=== PATIENT | female | born 1960 | race Caucasian/White ===

== ENCOUNTER → 2020-05-31 | Outpatient (CLI) | payer OTHER ==
[~2020-05-31] MED LIST: ALPR.5 PO; AMIT25; BCOIRO PO; BLOOD PRESSURE MED?; CLON1 PO; CONEST.625 PO; DULO30 PO; FLAX PO; FLAX SEED OIL1000 MG; GINSENG PO; Glucosamine Ch1 EAC4; HYDACE5 PO; HYDCHL25 PO; Hair, Skin & N1 EACH; Hydrochlorothia25 MG; IBUP800 PO; LISI10 PO; LISI20 PO; LISI5 PO; METF500; METF500 PO; Mobic15 MG; Multiple Vitam1 EAC1; NAPR550 PO; OMEP20ER PO; PROBIOTIC1 EAC1 PO; PROG100 PO; PSYL5.85P PO; VICODIN HP 10-1 EACH PO; ZOLP10 PO; [UNRECOGNIZED DRUG - OTHER] PO
== END ==
LOC: LAB EV 16:55 → LAB SHORT 16:55
DX: Z51.81 Encounter for therapeutic drug level monitoring (principal); Z79.899 Other long term (current) drug therapy
CPT/HCPCS: G0480

== ENCOUNTER → 2020-07-06 | Outpatient (CLI) | payer OTHER ==
[~2020-07-06] MED LIST changes: +AMITRIPTYLINE100 MG PO; +ASPI81CH PO; -Hair, Skin & N1 EACH; +Hair, Skin & N1 EACH PO; +METO50 PO; +MUPIROCIN22 G2; +Norco 7.5-3251 EACH PO; +Percocet 5-3251 EACH PO
== END | disposition home or self-care (01) ==
LOC: LAB SHORT 11:00
PROVIDERS: Family Medicine
DX: Z51.81 Encounter for therapeutic drug level monitoring (principal); Z79.899 Other long term (current) drug therapy
CPT/HCPCS: G0480

== ENCOUNTER → 2020-09-03 | Outpatient (CLI) | payer OTHER ==
[2020-09-09 06:11] LABS: 6-ACETYLMORPHINE Not Detected (.)
== END ==
LOC: LAB 12:04 → PLD 12:04 → LAB SHORT 12:04
PROVIDERS: Family Medicine
DX: Z51.81 Encounter for therapeutic drug level monitoring (principal); Z79.899 Other long term (current) drug therapy
CPT/HCPCS: G0480

== ENCOUNTER 2020-09-25 08:18 | Day surgery (SDC) | payer OTHER ==
[~2020-09-25] VITALS: Ht 165.1 cm; Wt 97.6 kg
[~2020-09-25 08:18] MED LIST changes: -ASPI81CH PO; -MUPIROCIN22 G2; -Percocet 5-3251 EACH PO
[2020-09-25] MEDS ORDERED: MUPIROCIN22 G2 (08:46)
--- NOTE | 2020-09-25 09:23 | NUR ---
History, Chart, Medications and Allergies reviewed before start of procedure. Patient confirms NPO status and agrees with scheduled surgery. Knee high fede hose with calf PAS applied to RLE. Nozin x3 ampules to nares per Dr. Stewart' order.
--- NOTE | 2020-09-25 14:28 | NUR ---
PT MED WITH ONE PAIN PILL TO START, REPORTS PAIN STILL 6/10. PT GIVEN ANOTHER PAIN PILL UPON REQ. SEE EMAR.
--- NOTE | 2020-09-25 18:15 | NUR ---
SHIFT SUMMARY PT EATING AND DRINKING. PT NOT VOIDED YET BUT REPORTS WILL TRY AFTER PAIN MEDICATIONS START WORKING. PT WORKED WITH THERAPY EARLIER TODAY. PT BEEN ASSISTED WITH ADL'S PRN. PT DRINKING WELL. PT HAD FAMILY IN TO SEE PT TODAY. PT BEEN MED PRN FOR PAIN WITH HAVING PAIN PILLS AND REQUIRED IV PAIN MEDICATION X1 TODAY. 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 WILL REPORT TO ONCOMING NURSE INCLUDING PT NOT VOIDED YET.
[2020-09-26 05:52] LABS: BASOPHILS ABSOLUTE AUTO 0.03 K/mm3 (0.00-0.23); BASOPHILS PERCENT AUTO 0 % (0-2); EOSINOPHILS PERCENT AUTO 0 % (0-6); Hematocrit 34.1 % (33.0-51.0); Hemoglobin 11.2 g/dL (11.5-16.0); IMMATURE GRAN ABSOLUTE AUTO 0.13 K/mm3 (0.00-0.10); IMMATURE GRAN PERCENT AUTO 1 % (0-1); LYMPHOCYTES ABSOLUTE AUTO 1.18 K/mm3 (0.84-5.20); LYMPHOCYTES PERCENT AUTO 7 % (21-46); MONOCYTES ABSOLUTE AUTO 1.06 K/mm3 (0.16-1.47); MONOCYTES PERCENT AUTO 6 % (4-13); Mean Corpuscular HGB 31.1 pg (26.0-34.0); Mean Corpuscular HGB Conc 32.8 g/dL (31.5-36.5); Mean Corpuscular Volume 95 fL (80-100); Mean Platelet Volume 11.1 fL (9.1-12.4); NEUTROPHILS ABSOLUTE AUTO 14.97 K/mm3 (1.96-9.15); NEUTROPHILS PERCENT AUTO 86 % (41-73); Platelet Count 310 K/mm3 (150-400); RDW Coefficient Variation 13.6 % (11.7-14.2); RDW Standard Deviation 47.1 fL (35.1-46.3); White Blood Cell Count 17.37 K/mm3 (4.00-11.30)
[2020-09-26 06:26] LABS: Anion Gap 9 mmol/L (6-16); Blood Urea Nitrogen 15 mg/dL (8-24); Bun/Creatinine Ratio 18.9 (12.0-20.0); CO2, Blood 26 mmol/L (21-32); Calcium, Blood 9.5 mg/dL (8.5-10.1); Chloride, Blood 98 mmol/L (98-108); Creatinine, Blood 0.79 mg/dL (0.40-1.00); Glomerular Filtration Rate >60 (60-); Glucose, Blood 122 mg/dL (70-99); Potassium, Blood 4.2 mmol/L (3.5-5.5); Sodium, Blood 133 mmol/L (136-145)
--- NOTE | 2020-09-26 08:34 | NUR ---
09/26/20 0834 Salina Simeon VERIFICATIONS: EDIT CHART.
[2020-09-26] MEDS ORDERED: ASPI81CH PO (09:40)
[2020-09-26] MEDS ORDERED: Percocet 5-3251 EACH PO (09:41)
--- NOTE | 2020-09-26 11:05 | NUR ---
DISCHARGE PT CLEARED THERAPY. PAIN WELL CONTROLLED. EATING, DRINKING, & VOIDING WELL. SCRIPTS, DRSGS, & POLAR PACK SENT. ESCORTED OUT VIA W/C.
== END 2020-09-26 11:07 | disposition home or self-care (01) ==
LOC: ORSCMMR 08:18 → ORD 09:45 → ORSCMMR 09:45 → SURS 13:10 → ORSCMMR 09-26 11:07
PROVIDERS: Orthopaedic Surgery
PROC: 0SRD0JA Replacement of Left Knee Joint with Synthetic Substitute, Uncemented, Open Approach (ICD-10-PCS; principal; 2020-09-25 09:45)
PROC: 8E0Y0CZ Robotic Assisted Procedure of Lower Extremity, Open Approach (ICD-10-PCS; principal; 2020-09-25 09:45)
DX: M17.12 Unilateral primary osteoarthritis, left knee (principal); E11.9 Type 2 diabetes mellitus without complications; I10 Essential (primary) hypertension; F41.9 Anxiety disorder, unspecified; E66.01 Morbid (severe) obesity due to excess calories; Z68.35 Body mass index [BMI] 35.0-35.9, adult; Z79.84 Long term (current) use of oral hypoglycemic drugs; Z79.899 Other long term (current) drug therapy
CPT/HCPCS: 27447; S2900; 36415; 73560-LT; 80048; 82947; 85025; 88300; 97110; 97110-CQ; 97116; 97116-CQ; 97162; 97530-CQ; A9270; C1776; J0171; J0690; J0735; J1100; J1170; J1885; J2250; J2370; J2405; J2704; J2795; J3010; J7120

== ENCOUNTER → 2023-07-23 | Outpatient (CLI) | payer OTHER ==
[~2023-07-23] MED LIST changes: +ASPI81CH PO; +MUPIROCIN22 G2; +Percocet 5-3251 EACH PO
== END ==
LOC: LAB SHORT 13:39 → LAB 13:39
DX: R63.0 Anorexia (principal)
CPT/HCPCS: 87086

== ENCOUNTER → 2023-07-23 | Outpatient (CLI) | payer OTHER ==
[2023-07-23 12:50] LABS: BASOPHILS ABSOLUTE AUTO 0.03 K/mm3 (0.00-0.23); BASOPHILS PERCENT AUTO 0 % (0-2); EOSINOPHILS PERCENT AUTO 0 % (0-6); Hematocrit 32.7 % (33.0-51.0); IMMATURE GRAN ABSOLUTE AUTO 0.08 K/mm3 (0.00-0.10); IMMATURE GRAN PERCENT AUTO 1 % (0-1); LYMPHOCYTES ABSOLUTE AUTO 1.38 K/mm3 (0.84-5.20); LYMPHOCYTES PERCENT AUTO 17 % (21-46); MONOCYTES ABSOLUTE AUTO 0.66 K/mm3 (0.16-1.47); MONOCYTES PERCENT AUTO 8 % (4-13); Mean Corpuscular HGB 31.3 pg (26.0-34.0); Mean Corpuscular HGB Conc 33.6 g/dL (31.5-36.5); Mean Corpuscular Volume 93 fL (80-100); Mean Platelet Volume 10.2 fL (9.1-12.4); NEUTROPHILS ABSOLUTE AUTO 6.12 K/mm3 (1.96-9.15); NEUTROPHILS PERCENT AUTO 74 % (41-73); Platelet Count 297 K/mm3 (150-400); RDW Coefficient Variation 13.7 % (11.7-14.2); RDW Standard Deviation 46.3 fL (35.1-46.3); Red Blood Cell Count 3.51 M/mm3 (3.80-5.20); White Blood Cell Count 8.27 K/mm3 (4.00-11.30)
[2023-07-23 13:02] LABS: Albumin, Blood 3.8 g/dL (3.4-5.0); Bilirubin, Total 0.4 mg/dL (0.1-1.0); Calcium, Blood 9.3 mg/dL (8.5-10.1); Globulin, Blood 3.9 g/dL (2.2-4.0); Potassium, Blood 3.7 mmol/L (3.5-5.5); Total Protein, Blood 7.7 g/dL (6.4-8.2)
== END ==
LOC: LAB 12:44 → LAB SHORT 12:44
PROVIDERS: Emergency Medicine
DX: I10 Essential (primary) hypertension (principal)
CPT/HCPCS: 80053; 85025